=== PATIENT | female | born 1945 | race Caucasian/White ===

== ENCOUNTER → 2016-12-19 | Outpatient (REF) ==
[~2016-12-19] MED LIST: NO HOME MEDICATIONS; NORCO 325 MG-51 TAB PO
== END ==
LOC: ZLAB.WCH 10:24
DX: Z01.89 Encounter for other specified special examinations (principal)

== ENCOUNTER 2020-12-28 14:44 | Inpatient (IN) | payer MEDICARE ==
[~2020-12-28] VITALS: Ht 167.6 cm; Wt 88.9 kg
[2020-12-28 16:01] LABS: BASO % 0.1 % (0.0-2.0); GRAN # 8.6 K/mm3 (1.4-6.5); GRAN % 83.6 % (42.2-75.2); HEMATOCRIT 42.8 % (37.0-47.0); HEMOGLOBIN 14.1 g/dl (12.5-16.0); LYMPH % 9.2 % (20.0-51.0); MEAN CELL VOLUME 86 fl (80.0-100.0); MEAN CORPUSCULAR HEMOGLOBIN 28 pg (27.0-31.0); MEAN CORPUSCULAR HGB CONC 33 g/dl (33.0-37.0); MEAN PLATELET VOLUME 10.4 fl (7.4-10.4); MONO # 0.6 K/mm3 (0.1-0.6); MONO % 6.2 % (1.7-9.3); PLATELET COUNT 216 K/mm3 (130-400); RED BLOOD COUNT 4.99 M/mm3 (4.10-5.30); REDCELL DISTRIBUTION WIDTH-CV 13.4 % (11.5-14.5)
[2020-12-28 16:13] LABS: ALBUMIN 3.1 gm/dL (3.4-4.8); BILIRUBIN,TOTAL 0.8 mg/dL (0.2-1.2); CALCIUM 8.5 mg/dL (8.4-10.2); CREATININE, serum 0.76 mg/dL (0.57-1.11); POTASSIUM 3.8 mmol/L (3.5-4.5); TOTAL PROTEIN 6.4 gm/dL (6.2-8.1)
[2020-12-28] MEDS ORDERED: RT SALINE 0.9% N3 ML IH (18:47)
[2020-12-28] MEDS ORDERED: TOPROL XL 50MG50 MG PO (18:48)
[2020-12-28] MEDS ORDERED: PREDNISONE10 MG PO (18:48)
[2020-12-28 19:36] LABS: INR 1.3 (0.8-3.0)
[2020-12-28 19:44] LABS: C-REACTIVE PROTEIN 2.76 mg/dL (0.00-0.50); MAGNESIUM 1.9 mg/dL (1.6-2.6)
[2020-12-28] MEDS ORDERED: ELIQUIS 2.5 PO (20:46)
[2020-12-28 21:07] VITALS: BP 146/64; PULSE 66; TEMP 97.4
[2020-12-28 23:52] VITALS: BP 128/61; PULSE 62; TEMP 97.7
[2020-12-29 04:45] VITALS: BP 118/52; PULSE 60; TEMP 98
--- NOTE | 2020-12-29 04:47 | NUR ---
PT HAD UNEVENTFUL NIGHT, REMAINS ON 2L NC, DENIES N,V,D, SOA, DIZZINESS, CONSTIPATION. ALL MEDICATIONS ADMINISTERED ORDERED. PT EXPRESSES NO ADDITIONAL NEEDS AT THIS TIME. N/S INFUSING TO RAC AT 100CC/HR. CALL LIGHT WITHIN REACH.
[2020-12-29 06:57] LABS: HEMATOCRIT 41.7 % (37.0-47.0); HEMOGLOBIN 13.3 g/dl (12.5-16.0); MEAN CELL VOLUME 86 fl (80.0-100.0); MEAN CORPUSCULAR HEMOGLOBIN 27 pg (27.0-31.0); MEAN CORPUSCULAR HGB CONC 32 g/dl (33.0-37.0); MEAN PLATELET VOLUME 11.2 fl (7.4-10.4); PLATELET COUNT 205 K/mm3 (130-400); RED BLOOD COUNT 4.85 M/mm3 (4.10-5.30); REDCELL DISTRIBUTION WIDTH-CV 13.2 % (11.5-14.5)
[2020-12-29 07:13] LABS: ALBUMIN 2.7 gm/dL (3.4-4.8); BILIRUBIN,TOTAL 0.4 mg/dL (0.2-1.2); CALCIUM 8.5 mg/dL (8.4-10.2); CREATININE, serum 0.68 mg/dL (0.57-1.11); TOTAL PROTEIN 6.2 gm/dL (6.2-8.1)
--- NOTE | 2020-12-29 07:16 | NUR ---
PT AWAKE/ALERT IN BED. WAITING FOR BREAKFAST. NO REPORTS OF PAIN. PT DENIES OTHER NEEDS AT THIS TIME. CALL ZIMMER IN REACH
[2020-12-29 08:09] VITALS: BP 149/72; PULSE 64; TEMP 98.2
[2020-12-29 08:28] LABS: BAND 2 % (0-10); LYMPHOCYTE 11 % (20.0-51.0); NEUTROPHILS 80 % (42.0-75.2); PLATELET ESTIMATE NORMAL (NORMAL)
[2020-12-29 12:30] VITALS: BP 144/66; PULSE 66; TEMP 97.6
[2020-12-29 15:47] VITALS: BP 141/61; PULSE 74; TEMP 98.1
--- NOTE | 2020-12-29 18:41 | NUR ---
PT HAD UNEVENTFUL DAY. PT GOT IN SHOWER AND WORKED WITH THERAPY TODAY. HER O2 IS STABLE AT 2L. PT ATE ALL MEALS TODAY AND SOME SNACKS. STATED SHE FEELS SO MUCH BETTER. HOPING TO GO HOME TOMORROW. DENIES PAIN. NO NEEDS AT THIS TIME. CALL ZIMMER IN REACH
[2020-12-29 19:30] VITALS: BP 136/56; PULSE 69; TEMP 98.4
[2020-12-29 22:17] VITALS: BP 130/60; PULSE 68; TEMP 98.3
--- NOTE | 2020-12-30 05:38 | NUR ---
PT HAD UNEVENTFUL NIGHT, 02 REMAINS 2L NC, PT CONTINUES TO MIDLY DESAT ON AMBULATION. THIS NURSE COVERED IMPORTANCE OF PRONING, MEDICATION COMPLIANCE WITH PT. PT VERBALIZES UNDERSTANDING. ALL QUESTIONS.CONCERNS ANSWERED. CALL LIGHT WITHIN REACH.
[2020-12-30 05:52] VITALS: BP 144/6; PULSE 69; TEMP 98.8
[2020-12-30 06:39] LABS: HEMATOCRIT 38.3 % (37.0-47.0); HEMOGLOBIN 12.3 g/dl (12.5-16.0); MEAN CELL VOLUME 86 fl (80.0-100.0); MEAN CORPUSCULAR HEMOGLOBIN 28 pg (27.0-31.0); MEAN CORPUSCULAR HGB CONC 32 g/dl (33.0-37.0); MEAN PLATELET VOLUME 10.7 fl (7.4-10.4); PLATELET COUNT 218 K/mm3 (130-400); RED BLOOD COUNT 4.44 M/mm3 (4.10-5.30); REDCELL DISTRIBUTION WIDTH-CV 13.2 % (11.5-14.5)
[2020-12-30 07:06] LABS: ALBUMIN 2.4 gm/dL (3.4-4.8); BILIRUBIN,TOTAL 0.4 mg/dL (0.2-1.2); CALCIUM 8.7 mg/dL (8.4-10.2); CREATININE, serum 0.61 mg/dL (0.57-1.11); POTASSIUM 3.6 mmol/L (3.5-4.5); TOTAL PROTEIN 5.1 gm/dL (6.2-8.1)
[2020-12-30 07:23] LABS: BAND 5 % (0-10); LYMPHOCYTE 9 % (20.0-51.0); NEUTROPHILS 81 % (42.0-75.2)
[2020-12-30 07:24] LABS: PLATELET ESTIMATE NORMAL (NORMAL)
[2020-12-30 08:28] VITALS: BP 154/62; PULSE 76; TEMP 98.7
--- NOTE | 2020-12-30 08:42 | NUR ---
Pt assessment complete. Pt is laying in bed upon entry, she is A/o x4. Her breathing is even and unlabored on 2L O2 via NC. Pt states she does become slightly dyspneic on exertion. Endorses a productive cough. No pain at this time. Denies diarrhea. POC discussed with patient who verbalizes understanding. No needs at this time. Call light within reach.
[2020-12-30 09:23] LABS: COLLECTION METHOD CLEAN CATCH
[2020-12-30 09:31] LABS: MUCOUS Present /lpf; PH 6 (5-8); URINE APPEARANCE Hazy; URINE BACTERIA Rare /hpf; URINE BILIRUBIN Negative (NEGATIVE); URINE BLOOD Negative (NEGATIVE); URINE COLOR Yellow; URINE GLUCOSE Negative (NEGATIVE); URINE KETONE Negative (NEGATIVE); URINE LEUKOCYTE ESTERASE 3+ (NEGATIVE); URINE NITRATE Negative (NEGATIVE); URINE PROTEIN(semi-quant) Negative (NEGATIVE); URINE UROBILINOGEN Negative (NEGATIVE)
--- NOTE | 2020-12-30 09:56 | NUR ---
Cnc Mill And Lathe Operator contacted patient by phone to discuss discharge planning. Patient lives in [place] with her , Florentino (ph#[phone]) and her daughter, Tamanna. Patient sees Dr. Manuel Logan for primary care and obtains medications from [facility] with no difficulties. Patient recently started using home oxygen from [facility] [employer] but reports she has been disappointed with their service. Patient does not use any other DME and reports independence with her ADLS. Patient advised she believes she has DPOA-HC completed at home which would designate her daughter, Deepa who is an RN. Patient states she plans to return home upon discharge. PT recommends Home Health vs outpatient PT depending on patient's progress. SW will continue to follow. Discharge Plan: Home
[2020-12-30] MEDS ORDERED: DOXYCYCLINE 10100 MG PO (10:54)
[2020-12-30] MEDS ORDERED: PROAIR HFA0.09 MG/AC IH (10:55)
[2020-12-30] MEDS ORDERED: DECADRON6 MG PO (10:55)
--- NOTE | 2020-12-30 11:27 | NUR ---
Special Education Paraeducator spoke with Hospitalist who advised patient would be discharged today. SW contacted patient and followed up on PT recommendation for outpatient PT or Home Health. Patient declined either service and advised she feels she will be fine. Patient states she has a couple "medical people" in her family. SW advised patient that if she gets home and changes her mind on Home Health or OP PT, she can contact her primary care office. Patient verbalized understanding and has no additional concerns at this time. Discharge Plan: Home
--- NOTE | 2020-12-30 13:47 | NUR ---
Discharge instructions and paperwork reviewed with patient. All questions answered at this time, including quarantine times. IV to RAC dc'd catheter tip intact. Pt wheeled out of facility at this time by staff.
== END 2020-12-30 13:48 | disposition home or self-care (01) | DRG 177 ==
LOC: COL.ER 14:44 → MEDICAL 16:59
PROVIDERS: Personal Emergency Response Attendant; ADMIT Student in an Organized Health Care Education/Training Program
DX: U07.1 COVID-19 (principal); J96.01 Acute respiratory failure with hypoxia; J12.82 Pneumonia due to coronavirus disease 2019; Z90.710 Acquired absence of both cervix and uterus; Z73.0 Burn-out; I49.3 Ventricular premature depolarization; R74.02 Elevation of levels of lactic acid dehydrogenase [LDH]
CPT/HCPCS: 99222-AI; 99232-AI; 99239; J0456; J0696; J1100; J1650; J2930; J7030; J7050; J8540